=== PATIENT | female | born 1980 | race Caucasian/White ===

== ENCOUNTER 2024-10-28 11:06 | Outpatient (CLI) | payer MEDICAID, SELFPAY ==
[2024-10-28 12:23] LABS: Abs Immature Grans 0.02 10^3/uL (0.0-0.06); Absolute Basophil Count 0.02 10^3/uL (0.0-0.2); Absolute Eosinophil Count 0.16 10^3/uL (0.0-0.7); Absolute Lymphocyte Count 1.58 10^3/uL (1.2-3.4); Absolute Monocyte Count 0.91 10^3/uL (0.1-0.8); Absolute Neutrophil Count 3.44 10^3/uL (1.2-6.7); Basophils % 0.3 %; Eosinophils % 2.6 %; HCT 42.3 % (36.0-46.0); HGB 13.8 g/dL (11.2-15.7); Immature Grans % 0.3 %; Lymphocytes % 25.8 %; MCH 30.9 pg (27.0-33.0); MCHC 32.6 % (32.0-36.0); MCV 95 fL (80-95); MPV 9.8 fL (8.0-11.0); Monocytes % 14.8 %; Neutrophils % 56.2 %; Platelet Count 330 10^3/uL (130-400); RBC 4.46 10^6/uL (3.93-5.22); RDW 12.7 % (11.7-14.6); RDW-SD 44.7 fL; WBC 6.13 10^3/uL (4.4-10.8)
[2024-10-28 14:24] LABS: ALT 18 U/L (14-59); AST 22 U/L (15-37); Albumin 3.8 g/dL (3.4-5.0); Alkaline Phosphatase 83 U/L (46-116); Anion Gap 12.9 mmol/L (3-11); BUN 14 mg/dL (7-18); Bilirubin, Total 0.23 mg/dL (0.2-1.0); CO2 24.1 mmol/L (21.0-32.0); CREATININE 0.8 mg/dL (0.55-1.02); Calcium 8.9 mg/dL (8.5-10.1); Chloride 104 mmol/L (98-107); Estimated GFR 91.97 (mL/min/1.73m2); Glucose 97 mg/dL (74-106); Lipase 32 U/L (<78); Magnesium 1.8 mg/dL (1.8-2.4); Sodium 141 mmol/L (136-145); Total Protein 7.9 g/dL (6.4-8.2)
== END 2024-10-28 11:07 | disposition home or self-care (01) ==
LOC: LOS 11:07
PROVIDERS: Referring Provider Nurse Practitioner Family; Visit Provider Nurse Practitioner Family
DX: R19.7 Diarrhea, unspecified (principal); R19.8 Other specified symptoms and signs involving the digestive system and abdomen
CPT/HCPCS: 36415; 80053; 83690; 83735; 85025

== ENCOUNTER 2024-10-29 11:19 | Outpatient (REF) | payer MEDICAID, SELFPAY ==
[2024-10-29 22:57] LABS: Campylobacter PCR Negative (Negative); Salmonella PCR Negative (Negative); Shiga Toxin PCR Negative (Negative); Shigella/Enteroinvasive Ecoli Negative (Negative)
== END 2024-10-29 11:20 | disposition home or self-care (01) ==
LOC: LBN 11:19
PROVIDERS: Visit Provider Nurse Practitioner Family
DX: R19.7 Diarrhea, unspecified (principal); K63.8219 Small intestinal bacterial overgrowth, unspecified
CPT/HCPCS: 87505; 87177

== ENCOUNTER 2024-12-10 09:57 | Outpatient (REF) | payer MEDICAID, SELFPAY ==
[2024-12-12 13:47] LABS: Helicobacter pylori Ag, Feces Negative (Negative)
[2024-12-12 14:40] LABS: Giardia Ag, F Positive (Negative)
[2024-12-12 14:51] LABS: Cryptosporidium, F Negative (Negative)
== END 2024-12-10 09:58 | disposition home or self-care (01) ==
LOC: LBN 09:57
PROVIDERS: Visit Provider Naturopath
DX: R10.13 Epigastric pain (principal); R14.0 Abdominal distension (gaseous); R11.0 Nausea
CPT/HCPCS: 87328; 87329; 87338

== ENCOUNTER 2024-12-13 10:46 | Outpatient (REF) | payer MEDICAID, SELFPAY ==
--- OUTSIDE RECORDS SUMMARY | 2024-12-13 10:49 | XMS_ITS | Referral Summary ---
Author Organization [facility] Address [address] [place] [address] Care Team Providers Care Barrel Lathe Operator Name Role Phone Unavailable Primary Care Provider Unavailabl e Encounters Date Type Department Care Team Description 12/10/2024 Lab Requisition [facility] [address] [address] Outr Resulting Lab, Provider 10/29/2024 Lab Requisition [facility] [address] [address] Outr Resulting Lab, Provider from Last 3 Months Social History Tobacco Use Types Packs/Day Years Used Date Smoking Tobacco: Never Assessed Comments Unknown Sex and Gender Information Value Date Recorded Sex Assigned at Not on file Legal Sex Female 12:48 EST Gender Identity Not on file Sexual Orientation Not on file Plan of Treatment Not on file Procedures Procedure Name Priority Date/Time Associated Diagnosis Comments H. PYLORI ANTIGEN Routine 12/10/2024 7:30 EST FECAL BACTERIAL PATHOGENS BY PCR Routine 10/29/2024 7:30 EST from Last 3 Months Results * H. PYLORI ANTIGEN (12/10/2024 7:30 EST) H. Pylori Negative Negative 12/12/2024 13:42 EST [facility] Comment:Indicates the absenc e of H. pylori stool antigen, (or the level of antigen is below that which can be detected by the assay) Feces SPECIMEN FROM RECTUM / Unknown 12/10/2024 7:30 EST 12/10/2024 16:34 EST us Provider Outr Resulting Lab MICROBIOLOGY - GENER AL ORDERABLES Final Result [facility] [address] [place] [address] * FECAL BACTERIAL PATHOGENS BY PCR (10/29/2024 7:30 EST) Salmonella PCR Negative Negative 10/29/2024 22:52 EST [facility] Shigella/Enteroin vasive E. coli Negative Negative 10/29/2024 22:52 EST [facility] HN LAB CAMPYLOBACTER PCR Negative Negative 10/29/2024 22:52 EST [facility] Shiga Toxin PCR Negative Negative 22:52 EST [facility] Feces SPECIMEN FROM RECTUM / Unknown 10/29/2024 7:30 EST 10/29/2024 18:29 EST us Provider Outr Resulting Lab MICROBIOLOGY - GENER AL ORDERABLES Final Result [facility] [address], [place] [id number] from Last 3 Months
--- OUTSIDE RECORDS SUMMARY | 2024-12-13 10:49 | XMS_ITS | Encounter Summary ---
Author Organization [facility] Address [address] [place] [id number] Care Team Providers Care Grades 1 Thru 6 Visiting Teacher Name Role Phone Unavailable Primary Care Provider Unavailabl e Encounter Details Date Type Department Care Team (Late st Contact Info) Description 12/10/2024 Lab Requisition [facility]ology & Laboratory Medicine - [address] [address] Outr Resulting Lab, Provider Social History Tobacco Use Types Packs/Day Years Used Date Smoking Tobacco: Never Assessed Comments Unknown Sex and Gender Information Value Date Recorded Sex Assigned at Not on file Legal Sex Female 12:48 EST Gender Identity Not on file Sexual Orientation Not on file documented as of this encounter Plan of Treatment Not on file documented as of this encounter Procedures Procedure Name Priority Date/Time Associated Diagnosis Comments H. PYLORI ANTIGEN Routine 12/10/2024 7:30 EST documented in this encounter Results * H. PYLORI ANTIGEN (12/10/2024 7:30 EST) H. Pylori Negative Negative 12/12/2024 13:42 EST [facility] Comment:Indicates the absenc e of H. pylori stool antigen, (or the level of antigen is below that which can be detected by the assay) Feces SPECIMEN FROM RECTUM / Unknown 12/10/2024 7:30 EST 12/10/2024 16:34 EST us Provider Outr Resulting Lab MICROBIOLOGY - GENER AL ORDERABLES Final Result [facility] [address] [place] [address] documented in this encounter Visit Diagnoses Not on filedocumented in this encounter
--- OUTSIDE RECORDS SUMMARY | 2024-12-13 10:49 | XMS_ITS | Encounter Summary ---
Author Organization [facility] Address [address] [place] [address] Care Team Providers Care Global Logistics Analyst Name Role Phone Unavailable Primary Care Provider Unavailabl e Encounter Details Date Type Department Care Team (Late st Contact Info) Description 10/29/2024 Lab Requisition [facility] Pathology & Laboratory Medicine - [facility] [address] [place] [address] Outr Resulting Lab, Provider Social History Tobacco [...] Procedure Name Priority Date/Time Associated Diagnosis Comments FECAL BACTERIAL PATHOGENS BY PCR Routine 10/29/2024 7:30 EST documented in this encounter Results * FECAL BACTERIAL PATHOGENS BY PCR (10/29/2024 7:30 EST) Salmonella PCR Negative Negative 10/29/2024 22:52 EST [facility] Shigella/Enteroin vasive E. coli Negative Negative 10/29/2024 22:52 EST [facility] HN LAB CAMPYLOBACTER PCR Negative Negative 10/29/2024 22:52 EST [facility] Shiga Toxin PCR Negative Negative 22:52 EST [facility] Feces SPECIMEN FROM RECTUM / Unknown 10/29/2024 7:30 EST 10/29/2024 18:29 EST us Provider Outr Resulting Lab MICROBIOLOGY - GENER AL ORDERABLES Final Result [facility] [address] [place] [address] documented in this encounter Visit Diagnoses Not on filedocumented in this encounter
--- OUTSIDE RECORDS SUMMARY | 2024-12-13 10:49 | XMS_ITS | Clinical Summary ---
Author Organization [facility] Address [address] [place] [address] Care Team Providers Care Tattoo Technician Name Role Phone Unavailable Primary Care Provider Unavailabl e Encounters Date Type Department Care Team Description 12/10/2024 Lab Requisition [facility] [address] [address] Outr Resulting Lab, Provider 10/29/2024 Lab Requisition [facility] [address] [address] Outr Resulting Lab, Provider from Last 3 [...] H. Pylori Negative Negative 12/12/2024 13:42 EST [facility] Comment:Indicates the absenc e of H. pylori stool antigen, (or the level of antigen is below that which can be detected by the assay) Feces SPECIMEN FROM RECTUM / Unknown 12/10/2024 7:30 EST 12/10/2024 16:34 EST us Provider Outr Resulting Lab MICROBIOLOGY - GENER AL ORDERABLES Final Result [facility] [address] [place] [address] * FECAL BACTERIAL PATHOGENS BY PCR (10/29/2024 7:30 EST) Salmonella PCR Negative Negative 10/29/2024 22:52 EST [facility] Shigella/Enteroin vasive E. coli Negative Negative 10/29/2024 22:52 EST [facility] HN LAB CAMPYLOBACTER PCR Negative Negative 10/29/2024 22:52 EST [facility] Shiga Toxin PCR Negative Negative 22:52 EST [facility] Feces SPECIMEN FROM RECTUM / Unknown 10/29/2024 7:30 EST 10/29/2024 18:29 EST us Provider Outr Resulting Lab MICROBIOLOGY - GENER AL ORDERABLES Final Result [facility] [address] [place], [place] [id number] from Last 3 Months
[2024-12-17 15:43] LABS: Giardia Ag, F Positive (Negative)
== END 2024-12-13 10:47 | disposition home or self-care (01) ==
LOC: LBN 10:46
PROVIDERS: Visit Provider Naturopath
DX: R10.13 Epigastric pain (principal); R14.0 Abdominal distension (gaseous); R10.32 Left lower quadrant pain; R11.0 Nausea
CPT/HCPCS: 87329

== ENCOUNTER 2025-07-03 12:10 | Outpatient (REF) | payer OTHER, SELFPAY ==
--- NOTE | 2025-07-03 12:15 | PAPFT_PTH ---
PATIENT: Elida Argueta LOC: BUD U#:[id number] AGE/SX: 44/F ROOM: RE07/03/[address]: Susan Kirk : 1980 BED: DIS: 07/03/2025 SPEC #: [id number] RECD: 07/06/25 13:05 STATUS: CHIP REQ #: [id number] RONNY: 07/03/25 12:[address]: Susan Kirk DEPT: [facility] Cytology RECD BY: Lizeth Adams ENTERED: 07/06/25 13:05 SP TYPE: PAPFT OTHR DR: Unknown,Unknown Tissues: 1 - CX/ENDOCX FOR PAP SMEARS Procedures: PAP THIN PREP/[facility] Screening HPV DNA PROBE Comments: [id number] (HPV 16 & 18/45) (CHLAMYDIA/GC)
[2025-07-07 12:15] LABS: Chlamydia Result Negative (Negative); GC Result Negative (Negative)
== END 2025-07-03 12:11 | disposition home or self-care (01) ==
LOC: LBN 12:10
PROVIDERS: Visit Provider Naturopath
DX: Z11.51 Encounter for screening for human papillomavirus (HPV) (principal); Z01.419 Encounter for gynecological examination (general) (routine) without abnormal findings; Z11.3 Encounter for screening for infections with a predominantly sexual mode of transmission
CPT/HCPCS: 87491; 87591; 88142; 87624

== ENCOUNTER 2025-10-02 10:28 | Outpatient (REF) | payer OTHER, SELFPAY | END 2025-10-02 10:29 | disposition home or self-care (01) | LOC: LBN 10:28 | PROVIDERS: PCP Naturopath; Visit Provider Obstetrics & Gynecology | DX: Z12.4 Encounter for screening for malignant neoplasm of cervix (principal) | CPT/HCPCS: 88142; 87624 ==